=== PATIENT | male | born 1960 | race Hispanic/Latino ===

== ENCOUNTER 2016-11-18 09:38 | Outpatient (CLI) | payer BC ==
[2016-11-18 12:26] LABS: #Basophils 0.1 thou/uL (0.0-0.2); #Eosinphils 0.1 thou/uL (0.0-0.7); #Lymphocytes 1.6 thou/uL (1.20-3.40); #Monocytes 0.4 thou/uL (0.11-0.59); #Neutrophils 3.6 thou/uL (1.40-6.50); %Eosinophils 2.3 % (0.0-10.0); %Lymphocytes 27.8 % (21.0-51.0); %Monocytes 6.7 % (0.0-10.0); Hematocrit 46.6 % (42.0-52.0); Mean Platelet Volume 8.4 fL (7.4-10.4); Red Blood Cell (RBC) Count 5.32 mill/uL (4.70-6.10); White Blood Cell (WBC) Count 5.8 thou/uL (4.8-10.8)
[2016-11-18 12:40] LABS: ALT (SGPT) 20 U/L (0-55); AST (SGOT) 16 U/L (5-34); Alkaline Phosphatase 69 U/L (40-150); Anion Gap 14 mmol/L (10-20); BUN (Urea Nitrogen) 17 mg/dL (8.4-25.7); Bilirubin, Total 1.1 mg/dL (0.2-1.2); Calc. Creatinine Clearance 0 mL/min (70-130); Calcium 9.4 mg/dL (7.8-10.44); Carbon Dioxide 24 mmol/L (22-29); Chloride 106 mmol/L (98-107); Estimated GFR-MDRD Greater than 90; Globulin 2.7 g/dL (2.4-3.5); LDL Cholesterol, Calculated 55 mg/dL; Protein, Total 7.2 g/dL (6.0-8.3)
[2016-11-18 13:01] LABS: Bilirubin Negative (Negative); Blood, Urine Negative (Negative); Glucose, Urine (Dipstick) Negative (Negative); Ketone, Urine Negative (Negative); Nitrite Negative (Negative); Protein, Urine (Dipstick) Negative (Neg-Trace); Urobilinogen 0.2 mg/dL (0.2-1.0)
[2016-11-18 13:12] LABS: Hemoglobin A1c 5.4 % (4.0-6.0)
== END 2016-11-18 09:39 | disposition home or self-care (01) ==
LOC: NAVSJIPCSP 09:38
PROVIDERS: ATTEND Internal Medicine
DX: Z12.5 Encounter for screening for malignant neoplasm of prostate (principal); E78.5 Hyperlipidemia, unspecified; E11.9 Type 2 diabetes mellitus without complications; Z79.899 Other long term (current) drug therapy
CPT/HCPCS: 36415; 80053; 80061; 81003; 82043; 83036; 85025; G0103

== ENCOUNTER 2017-02-15 08:53 | Outpatient (CLI) | payer BC ==
[2017-02-15 13:03] LABS: Hemoglobin A1c 5.8 % (4.0-6.0)
[2017-02-15 13:14] LABS: Cardiac Risk 3.6 (Less than 4.5)
== END 2017-02-15 08:54 ==
LOC: NAVSJIPCSP 08:53
PROVIDERS: ATTEND Internal Medicine
DX: E78.5 Hyperlipidemia, unspecified (principal); E11.9 Type 2 diabetes mellitus without complications
CPT/HCPCS: 36415; 80061; 83036

== ENCOUNTER 2017-05-19 08:56 | Outpatient (CLI) | payer BC ==
[2017-05-19 12:38] LABS: Hemoglobin A1c 5.8 % (4.0-6.0)
[2017-05-19 13:32] LABS: Cardiac Risk 4.3 (Less than 4.5)
== END 2017-05-19 08:57 | disposition home or self-care (01) ==
LOC: NAVSJIPCSP 08:56
PROVIDERS: ATTEND Internal Medicine
DX: E11.9 Type 2 diabetes mellitus without complications (principal); E78.5 Hyperlipidemia, unspecified; Z79.899 Other long term (current) drug therapy
CPT/HCPCS: 36415; 80061; 83036

== ENCOUNTER 2017-06-29 14:32 | Outpatient (CLI) | payer BC ==
--- NOTE | 2017-06-29 16:27 | ULT ---
TESTICULAR ULTRASOUND: 06/29/17 INDICATION: Right sided testicular pain. TECHNIQUE: Jimenez scale, color doppler, vascular duplex with spectral analysis is performed. FINDINGS: Right testicle measures 2.8 x 2.5 x 3.9 cm. Left testicle measures 4.0 x 2.4 x 3.7 cm. There is norm al flow seen to both testicles. Small hydrocele is seen bilaterally. The epididymi appear within normal limits. There is a 4 mm epididymal head cyst seen on the left. IMPRESSION: 1. No evidence of testicular torsion or intratesticular mass. 2. Small left epididymal head cyst. POS: [facility]
== END 2017-06-29 14:33 | disposition home or self-care (01) ==
LOC: NAV ULT 14:32
PROVIDERS: ATTEND Urology
DX: N50.811 Right testicular pain (principal); N50.3 Cyst of epididymis
CPT/HCPCS: 76870; 93976